=== PATIENT | male | born 1975 | race African-American/Black ===

== ENCOUNTER 2018-07-13 06:29 | Emergency (ER) | payer BC ==
[~2018-07-13] VITALS: Ht 182.9 cm; Wt 158.8 kg
--- NOTE | ~2018-07-13 | EKG ---
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
[2018-07-13 06:59] LABS: HEMATOCRIT 38.4 % (42.0-52.0); HEMOGLOBIN 12.8 gm/dL (14.0-18.0); MCH 31.7 pg (26.0-34.0); MCHC 33.4 g/dL (28.0-37.0); MCV 94.9 fL (80.0-100.0); RBC 4.04 mil/uL (4.50-6.00); RDW 14.1 % (10.5-14.5); WBC 9.2 thou/uL (4.0-11.0)
[2018-07-13 07:07] LABS: CALCIUM 9.1 mg/dL (8.5-10.1); CREATININE 1.1 mg/dL (0.7-1.3); MAGNESIUM 2.1 mg/dL (1.8-2.4); POTASSIUM 3.8 mmol/L (3.5-5.1)
[2018-07-13 08:20] VITALS: BP 125/85
--- NOTE | 2018-07-16 22:19 | EKG ---
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 : 1975 Requested By: Kae Lovell Order Number: [id number] MD: Dimitris Marcus Measurements Intervals [place] Rate: 83 P: 61 [place]: 166 QRS: 41 QRSD: 95 T: 29 QT: 414 QTc: 487 Interpretive Statements Sinus rhythm Borderline prolonged QT interval No previous ECG available for comparison Electronically Signed On 07-16-2018 22:19:12 CDT by Dimitris Marcus [email or web address] ��������������������������������������������� <ELECTRONICALLY SIGNED> ���������������������������������������� By: Dimitris Marcus MD ��������������������������������������������� 07/16/18 2219 0631 0631 MD NESTOR Vazquez
== END 2018-07-13 09:02 | disposition home or self-care (01) ==
LOC: ER 06:29
PROVIDERS: Emergency Medicine
DX: R20.2 Paresthesia of skin (principal); R20.0 Anesthesia of skin